=== PATIENT | male | born 1980 | race African-American/Black ===

== ENCOUNTER 2017-06-25 13:05 | Emergency (ER) | payer OTHER ==
[~2017-06-25] VITALS: Ht 175.3 cm; Wt 77.1 kg
[2017-06-25] MEDS ORDERED: LIDOCAINE 1%-EPI 1:100,000 50 ML VIAL IJ ONE ×2 (13:13→13:30)
[2017-06-25 13:37] VITALS: BP 102/80
--- NOTE | 2017-06-25 13:37 | NUR ---
Patient discharged to home in stable condition. Written and verbal after care instructions given. Patient verbalizes understanding of instruction. OK TO BOOK- DCD IN CUSTODY
== END 2017-06-25 13:38 ==
LOC: EDBD 13:09 → ER 13:09
DX: Z02.89 Encounter for other administrative examinations (principal); S29.8XXA Other specified injuries of thorax, initial encounter; S21.209A Unspecified open wound of unspecified back wall of thorax without penetration into thoracic cavity, initial encounter; W34.09XA Accidental discharge from other specified firearms, initial encounter; Y93.89 Activity, other specified; Y92.89 Other specified places as the place of occurrence of the external cause; Y99.8 Other external cause status
CPT/HCPCS: 99283; J3490; A4606; Z7610